=== PATIENT | female | born 1995 | race Caucasian/White ===

== ENCOUNTER 2018-08-09 09:55 | Emergency (ER) | payer BC, OTHER ==
[~2018-08-09] VITALS: Ht 154.9 cm; Wt 74.8 kg
--- OUTSIDE RECORDS SUMMARY | 2018-08-09 10:05 | XMS REPORT ---
Author Author JAGJIT HERCULES [facility] Address [address] [place] [address] Care Team Providers Care Curam Developer Name Role Phone JAGJIT HERCULES Unavailable PROBLEMS Type Condition ICD9-CM Code [id number] Code Onset Dates Condition Status SNOMED Code Problem Irritable bowel syndrome with diarrhea K58.0 Active 246161702 ALLERGIES Substance Reaction Event Type Date Status N.K.D.A. Unknown Non Drug Allergy Mar, Unknown SOCIAL HISTORY No smoking Hx information available PLAN OF CARE VITAL SIGNS MEDICATIONS Unknown Medications RESULTS No Results PROCEDURES No Known procedures IMMUNIZATIONS No Known Immunizations
--- OUTSIDE RECORDS SUMMARY | 2018-08-09 10:05 | XMS REPORT ---
Author Author FERNANDA NO [facility] Address [address] [place] [address] Care Team Providers Care Full Time Name Role Phone FERNANDA NO Unavailable PROBLEMS Type Condition ICD9-CM Code XDX88-CQ Code Onset Dates Condition Status SNOMED Code Problem Depression, unspecified depression type F32.9 Active 52677496 Problem Anxiety, generalized F41.1 Active 28132706 Problem Irritable bowel syndrome with diarrhea K58.0 Active 895596817 Assessment Depression, unspecified depression type F32.9 Apr, Active 63435000 ALLERGIES Unknown Allergies SOCIAL HISTORY No smoking Hx information available PLAN OF CARE VITAL SIGNS MEDICATIONS Unknown Medications RESULTS No Results PROCEDURES Procedure Date Ordered Related Diagnosis Body Site Psych diagnostic evaluation, new patient May 01, 2016 IMMUNIZATIONS No Known Immunizations
--- OUTSIDE RECORDS SUMMARY | 2018-08-09 10:05 | XMS REPORT ---
Author Author JAGJIT HERCULES [facility] Address [address] [place] [address] Care Team Providers Care Civil Engineering Draftsperson Name Role Phone JAGJIT HERCULES Unavailable PROBLEMS Type Condition ICD9-CM Code WYS87-ZN Code Onset Dates Condition Status SNOMED Code Problem Anxiety, generalized F41.1 Active 90397908 Problem Depression, unspecified depression type F32.9 Active 29949730 Problem Irritable bowel syndrome with diarrhea K58.0 Active [id number] ALLERGIES Substance Reaction Event Type Date Status N.K.D.A. Unknown Non Drug Allergy May, Unknown SOCIAL HISTORY No smoking Hx information available PLAN OF CARE Activity Details Follow Up 3 Months Reason:anxiety VITAL SIGNS Height 62 in 2016-06-13 Weight 196 lbs 2016-06-13 Temperature 98.6 degrees Fahrenheit 2016-06-13 Heart Rate 80 bpm 2016-06-13 Respiratory Rate 16 2016-06-13 BMI 35.84 kg/m2 2016-06-13 Blood pressure systolic 110 mmHg 2016-06-13 Blood pressure diastolic 80 mmHg 2016-06-13 MEDICATIONS Medication Instructions Dosage Frequency Start Date End Date Duration Status Prozac 20 mg Orally Once a day 1 capsule in the morning 24h Apr, Active Omeprazole 20 mg Orally twice a day 1 capsule 12h May, 30 day(s ) Active Citrucel - Orally Once a day as directed 24h Apr, Active RESULTS No Results PROCEDURES Procedure Date Ordered Related Diagnosis Body Site Office Visit, Est Pt., Level 3 Jun 13, 2016 IMMUNIZATIONS No Known Immunizations
[2018-08-09] MEDS ORDERED: ONDA4TAB11 PO (10:22)
[2018-08-09] MEDS ORDERED: DOXY1TAB3 PO (10:22)
--- NOTE | 2018-08-09 10:22 | ED GU-Female ---
General Chief Complaint: SKIN PILER Stated Complaint: VOMITTING-7 WEEKS Source: patient, other Exam Limitations: no limitations History of Present Illness Date Seen by Provider: Aug 09, 2018 Time Seen by Provider: 10:04 Initial Comments The patient presents to ER by private conveyance with chief complaint of nausea for the past 2-3 days. She's had occasional vomiting. No fevers or chills dysuria diarrhea. She has a history of Crohn's but has not acted up in years. She does not take any routine medicines except for vitamins. She is a at 6 weeks 2 days with an LMP of June 26, 2018. Her plan is to follow with Dr. Hernandez at [facility] and her first appointment is about 2 weeks away. She has no other significant medical history. She was using some Benadryl with modest relief of her symptoms up until yesterday. Allergies and Home Medications Allergies Coded Allergies: No Known Drug Allergies (Unverified , 08/09/18) Home Medications Doxylamine/Pyridoxine HCl 1 Each Tablet.dr, 1 EACH PO TID PRN for NAUSEA/ VOMITING-1ST LINE Prescribed by: ASHU MCCABE on 08/09/18 1022 Ondansetron 4 Mg Tab.rapdis, 4 MG PO Q6H PRN for NAUSEA/VOMITING-2ND LINE Prescribed by: ASHU MCCABE on 08/09/18 1022 Patient Home Medication List Home Medication List Reviewed: Yes Review of Systems Review of Systems Constitutional: No chills, No fever EENTM: No ear discharge Respiratory: No cough, No short of breath Cardiovascular: No chest pain, No edema Gastrointestinal: No abdominal pain; constipation; No diarrhea, No heartburn; nausea, vomiting Genitourinary: denies burning, denies dysuria : Yes LMP: Jun 26, 2018 Past Imgireu-Uuwjnn-Nqoumt Hx Patient Social History Alcohol Use: Rarely Uses Recreational Drug Use: No Smoking Status: Former Smoker Type Used: Cigarettes (0.5 ppd) Recent Foreign Travel: No Contact w/Someone Who Travel: No Physical Exam Vital Signs Vital Signs - First Documented 08/09/18 10:05 Temp 97.9 Pulse 107 Resp 18 B/P (MAP) 128/79 (95) Pulse Ox 98 Capillary Refill : Height, Weight, BMI Height: '" Weight: lbs. oz. kg; BMI Method: General Appearance: WD/WN, no apparent distress HEENT: PERRL/EOMI, pharynx normal (mildly dry oropharynx) Cardiovascular: normal peripheral pulses, regular rate, rhythm, no edema Respiratory: no respiratory distress, no accessory muscle use Gastrointestinal: normal bowel sounds, non tender, soft Neurologic/Psychiatric: alert, normal mood/affect, oriented x 3 Progress/Results/Core Measures Suspected Sepsis SIRS Temperature: Pulse: Respiratory Rate: Blood Pressure / Mean: Results/Orders Lab Results Laboratory Tests Test 08/09/18 10:25 Range/Units Urine Color YELLOW Urine Clarity CLEAR Urine pH 6.5 5-9 Urine Specific [place] 1.010 L 1.016-1.022 Urine Protein NEGATIVE NEGATIVE Urine Glucose (UA) NEGATIVE NEGATIVE Urine Ketones NEGATIVE NEGATIVE Urine Nitrite NEGATIVE NEGATIVE Urine Bilirubin NEGATIVE NEGATIVE Urine Urobilinogen NORMAL NORMAL MG/DL Urine Leukocyte Esterase 1+ H NEGATIVE Urine RBC (Auto) 1+ H NEGATIVE Urine RBC RARE /HPF Urine WBC RARE /HPF Urine Squamous Epithelial Cells 5-10 /HPF Urine Crystals NONE /LPF Urine Bacteria NEGATIVE /HPF Urine Casts NONE /LPF Urine Mucus SMALL H /LPF Urine Culture Indicated NO My Orders Orders - ASHU MCCABE Ua Culture If Indicated (08/09/18 10:15) Urine Bedside (08/09/18 10:15) Vital Signs/I&O 08/09/18 10:05 Temp 97.9 Pulse 107 Resp 18 B/P (MAP) 128/79 (95) Pulse Ox 98 Capillary Refill : Progress Note : Time: 10:19 Progress Note Chest mild tachycardia 107 but her nausea has resolved just with sitting here. Recommend some period on scene and doxylamine. Continue the prenatals which do not seem to have any association with her nausea. We'll get a urinalysis to rule out a bladder infection. She can follow-up with primary care. We'll provide Zofran as a backup if the other medicines are not working. Departure Impression Primary Impression: Nausea and vomiting during prior to 22 weeks gestation Additional Impression: Constipation Qualified Codes: K59.00 - Constipation, unspecified Disposition: HOME, SELF-CARE Condition: Stable Departure-Patient Inst. Decision time for Depature: 11:50 Referrals: NO,LOCAL PHYSICIAN (PCP/Family) Primary Care Physician Patient Instructions: Morning Sickness (DC) Add. Discharge Instructions: Drink plenty of fluids and take your vitamins on a full stomach. Use the vitamin B6 and doxylamine up to 3 times a day as needed for nausea or vomiting. If you cannot get her nausea vomiting under control then you can also use the Zofran 1 tablet every 8 hours as needed. Follow-up with your OB provider. 1 capful of MiraLAX, polyethylene glycol powder in 6-8 ounces of fluid of your choice daily until your constipation resolved. All discharge instructions reviewed with patient and/or family. Voiced understanding. Scripts Ondansetron (Ondansetron Odt) 4 Mg Tab.rapdis 4 MG PO Q6H PRN for NAUSEA/VOMITING-2ND LINE, #8 TAB 0 Refills Prov: ASHU MCCABE 08/09/18 Doxylamine/Pyridoxine HCl (Sergio Villafuerte 10-10 mg Tablet) 1 Each Tablet.dr 1 EACH PO TID PRN for NAUSEA/VOMITING-1ST LINE, #30 TAB 0 Refills Prov: ASHU MCCABE 08/09/18 ASHU MCCABE Aug 09, 2018 10:22
[2018-08-09 10:35] LABS: BILIRUBIN,URINE NEGATIVE (NEGATIVE); CLARITY,URINE CLEAR; COLOR,URINE YELLOW; GLUCOSE, URINE (UA) NEGATIVE (NEGATIVE); KETONES,URINE NEGATIVE (NEGATIVE); LEUKOCYTE ESTERASE ,URINE 1+ (NEGATIVE); NITRITE,URINE NEGATIVE (NEGATIVE); PH,URINE 6.5 (5-9); PROTEIN,URINE NEGATIVE (NEGATIVE); UROBILINOGEN,URINE NORMAL (NORMAL)
[2018-08-09 10:48] LABS: BACTERIA,URINE NEGATIVE /HPF; RBC,URINE RARE /HPF; WBC,URINE RARE /HPF
[2018-08-09] MEDS ORDERED: ONDANSETRON 4 MG (ZOFRAN) ORAL DISSOLVE TAB PO ONE (12:00)
[2018-08-09 12:01] VITALS: BP 128/79
== END 2018-08-09 12:02 | disposition home or self-care (01) ==
LOC: EDUNIT# 09:55 → ER 10:01
DX: O21.9 Vomiting of pregnancy, unspecified (principal); O99.611 Diseases of the digestive system complicating pregnancy, first trimester; K59.00 Constipation, unspecified; Z87.19 Personal history of other diseases of the digestive system; Z3A.01 Less than 8 weeks gestation of pregnancy; Z87.891 Personal history of nicotine dependence
CPT/HCPCS: 81000; 84703; 99283

== ENCOUNTER 2018-08-23 01:02 | Emergency (ER) | payer BC ==
[~2018-08-23] VITALS: Ht 154.9 cm; Wt 74.8 kg
[~2018-08-23 01:02] MED LIST: DOXY1TAB3 PO; ONDA4TAB11 PO
--- NOTE | 2018-08-23 01:25 | ED GI ---
General Chief Complaint: Abdominal/GI Problems Stated Complaint: THROWING UP Nursing Triage Note: N/V X3 WEEKS Sepsis Screen: No Definite Risk Source of Information: Patient, Other Exam Limitations: No Limitations History of Present Illness Date Seen by Provider: Aug 23, 2018 Time Seen by Provider: 01:10 Initial Comments Patient presents to ER by private conveyance with her significant other and chief complaint that she is consistently nauseated and her first trimester. She is a , with an LMP of June 26, 2018 putting her at 8 weeks and 2 days. She denies any fevers chills dysuria or abdominal pain, diarrhea, constipation, cough or shortness of breath. She said Zofran she was using about 3 times a day was working very well for her. Allergies and Home Medications Allergies Coded Allergies: No Known Drug Allergies (Unverified , 08/09/18) Home Medications Doxylamine/Pyridoxine HCl 1 Each Tablet.dr, 1 EACH PO TID PRN for NAUSEA/ VOMITING-1ST LINE Prescribed by: ASHU MCCABE on 08/09/18 1022 Ondansetron 4 Mg Tab.rapdis, 4 MG PO Q6H PRN for NAUSEA/VOMITING-2ND LINE Prescribed by: ASHU MCCABE on 08/09/18 1022 Patient Home Medication List Home Medication List Reviewed: Yes Review of Systems Review of Systems Constitutional: No chills, No fever EENTM: No Blurred Vision, No Eye Tearing Respiratory: Denies Cough, Denies Shortness of Air Cardiovascular: Denies Chest Pain, Denies Edema Gastrointestinal: Denies Abdomen Distended, Denies Abdominal Pain, Denies Constipated, Denies Diarrhea; Nausea; Denies Poor Fluid Intake; Vomiting Genitourinary: Denies Burning, Denies Discharge Musculoskeletal: No back pain, No joint pain Skin: No pruritus, No rash Past Hzrppsi-Kviekg-Lsesbo Hx Patient Social History Alcohol Use: Denies Use Recreational Drug Use: No Smoking Status: Current Everyday Smoker Type Used: Cigarettes 2nd Hand Smoke Exposure: Yes Recent Foreign Travel: No Contact w/Someone Who Travel: No Recent Infectious Disease Expo: No Recent Hopitalizations: No Seasonal Allergies Seasonal Allergies: No Past Medical History Surgeries: No Respiratory: No Cardiac: No Neurological: No : Yes Genitourinary: No Gastrointestinal: No Musculoskeletal: No Endocrine: No HEENT: No Cancer: No Psychosocial: No Integumentary: No Blood Disorders: No Physical Exam Vital Signs Vital Signs - First Documented 08/23/18 01:10 Temp 97.7 Pulse 95 Resp 18 B/P (MAP) 111/67 (82) Pulse Ox 100 O2 Delivery Room Air Capillary Refill : Less Than 3 Seconds Height/Weight/BMI Height: 5'1.00" Weight: 165lbs. oz. 74.406359bk; BMI Method:Estimated General Appearance: WD/WN, no apparent distress HEENT: TMs normal, pharynx normal Neck: non-tender, full range of motion, supple Respiratory: lungs clear, normal breath sounds, no respiratory distress, no accessory muscle use Cardiovascular: normal peripheral pulses, regular rate, rhythm, no edema Gastrointestinal: non tender, soft Extremities: non-tender, normal capillary refill Progress/Results/Core Measures Results/Orders My Orders Orders - ASHU MCCABE Ondansetron Oral Dissolve Tab (Zofran (08/23/18 01:30) Vital Signs/I&O 08/23/18 01:10 Temp 97.7 Pulse 95 Resp 18 B/P (MAP) 111/67 (82) Pulse Ox 100 O2 Delivery Room Air Blood Pressure Mean: 82 Departure Impression Primary Impression: Nausea and vomiting during prior to 22 weeks gestation Disposition: 01 HOME, SELF-CARE Condition: Stable Departure-Patient Inst. Decision time for Depature: 01:25 Referrals: NO,LOCAL PHYSICIAN (PCP/Family) Primary Care Physician Patient Instructions: Nausea and Vomiting of (DC) Add. Discharge Instructions: Take the Zofran every 6 hours as needed for nausea or vomiting. Use pyridoxine, vitamin B6 [id number] 2-3 times a day as necessary. All discharge instructions reviewed with patient and/or family. Voiced understanding. Scripts Ondansetron (Ondansetron Odt) 4 Mg Tab.rapdis 4 MG PO Q6H PRN for NAUSEA/VOMITING, #30 TAB 0 Refills Prov: ASHU MCCABE 08/23/18 ASHU MCCABE Aug 23, 2018 01:25
[2018-08-23] MEDS ORDERED: ONDA4TAB11 PO (01:28)
[2018-08-23] MEDS ORDERED: ONDANSETRON 4 MG (ZOFRAN) ORAL DISSOLVE TAB PO ONE (01:30)
[2018-08-23 01:33] VITALS: BP 111/67
== END 2018-08-23 01:32 | disposition home or self-care (01) ==
LOC: EDUNIT# 01:02 → ER 01:05
DX: O21.9 Vomiting of pregnancy, unspecified (principal); O99.331 Smoking (tobacco) complicating pregnancy, first trimester; F17.210 Nicotine dependence, cigarettes, uncomplicated; Z3A.01 Less than 8 weeks gestation of pregnancy
CPT/HCPCS: 99283

== ENCOUNTER 2020-11-14 15:20 | Emergency (ER) | payer BC, OTHER ==
[~2020-11-14] VITALS: Ht 160 cm; Wt 95.0 kg
[2020-11-14 16:15] LABS: BILIRUBIN,URINE NEGATIVE (NEGATIVE); CLARITY,URINE CLEAR; COLOR,URINE YELLOW; GLUCOSE, URINE (UA) NEGATIVE (NEGATIVE); KETONES,URINE NEGATIVE (NEGATIVE); LEUKOCYTE ESTERASE ,URINE NEGATIVE (NEGATIVE); NITRITE,URINE NEGATIVE (NEGATIVE); PROTEIN,URINE NEGATIVE (NEGATIVE)
[2020-11-14] MEDS ORDERED: NS IV 1000 ML 1,000 ML IV SCH (16:15)
[2020-11-14 16:17] LABS: BASOPHILS % (AUTO) 0 % (0-10); EOSINOPHILS # (AUTO) 0.1 10^3/uL (0.0-0.3); EOSINOPHILS % (AUTO) 1 % (0-10); HEMATOCRIT 41 % (35-52); LYMPHOCYTES # (AUTO) 1.2 10^3/uL (1.0-4.0); LYMPHOCYTES % (AUTO) 11 % (12-44); MEAN CORPUSCULAR HEMOGLOBIN 28 pg (25-34); MEAN CORPUSCULAR HGB CONC 32 g/dL (32-36); MEAN CORPUSCULAR VOLUME 89 fL (80-99); MEAN PLATELET VOLUME 12.4 fL (9.0-12.2); MONOCYTES # (AUTO) 0.7 10^3/uL (0.0-1.0); MONOCYTES % (AUTO) 7 % (0-12); NEUTROPHILS # (AUTO) 8.6 10^3/uL (1.8-7.8); NEUTROPHILS % (AUTO) 80 % (42-75); PLATELET COUNT 249 10^3/uL (130-400); WHITE BLOOD COUNT 10.8 10^3/uL (4.3-11.0)
--- NOTE | 2020-11-14 16:22 | ED Abdominal Pain ---
General Chief Complaint: Abdominal/GI Problems Stated Complaint: VOMITING/R SIDE PAIN Nursing Triage Note: ARRIVED VIA AMB TO ROOM 06 WITH COMPLAINTS OF RIGHT SIDED ABD PAIN AND VOMITING STARTING LAST NIGHT. Sepsis Screen: No Definite Risk History of Present Illness Date Seen by Provider: Nov 14, 2020 Time Seen by Provider: 16:00 Initial Comments Patient is a 24-year-old female who presents to the emergency department today with a chief complaint of right flank right upper quadrant and right lower quadrant abdominal pain. Patient states onset of pain last night. Patient states the pain is sharp in nature nothing really makes it any better or any worse. Patient states that she is took some Tylenol for the pain but it has not alleviated her symptoms. She complains of mild nausea. She denies any dysuria, urgency or frequency. She denies urine that is darker than normal. She denies any abnormal vaginal discharge. She is sexually active but is 6 months and her first sexual activity was 1 week ago. She is not on control. Patient has never had a kidney stone before. No fevers, chills. No productive cough. No shortness of breath. All other review of systems reviewed and negative except as stated above. Timing/Duration: 24 Hours Severity/Quality: Moderate, Sharp Location: Flank (Right flank) Radiation: RLQ Activities at Onset: None Modifying Factors: Improves With Analgesics (Patient states she took Tylenol without relief) Associated Symptoms: Back Pain (Right flank/back), Nausea/Vomiting (Mild nausea without vomiting) Allergies and Home Medications Allergies Coded Allergies: No Known Drug Allergies (Unverified , 08/09/18) Home Medications No Active Prescriptions or Reported Meds Patient Home Medication List Home Medication List Reviewed: Yes Review of Systems Review of Systems Constitutional: see HPI EENTM: No Symptoms Reported Respiratory: No Symptoms Reported Cardiovascular: No Symptoms Reported Gastrointestinal: Abdominal Pain Genitourinary: No Symptoms Reported Musculoskeletal: no symptoms reported Skin: no symptoms reported All Other Systems Reviewed Negative Unless Noted: Yes Past Wkslafy-Cqocdd-Lppktq Hx Patient Social History Alcohol Use: Denies Use Smoking Status: Current Everyday Smoker Type Used: Cigarettes 2nd Hand Smoke Exposure: Yes Recent Infectious Disease Expo: No Recent Hopitalizations: No Seasonal Allergies Seasonal Allergies: No Past Medical History Surgeries: No Respiratory: No Cardiac: No Neurological: No Genitourinary: No Gastrointestinal: No Musculoskeletal: No Endocrine: No HEENT: No Cancer: No Psychosocial: No Integumentary: No Blood Disorders: No Physical Exam Vital Signs Vital Signs - First Documented 11/14/20 15:20 Temp 36.2 Pulse 79 Resp 16 B/P (MAP) 138/90 (106) Pulse Ox 98 O2 Delivery Room Air Capillary Refill : Less Than 3 Seconds Height/Weight/BMI Height: 5'1.00" Weight: 165lbs. oz. 74.184657je; 37.00 BMI Method:Estimated General Appearance: WD/WN, mild distress Neck: normal inspection Respiratory: lungs clear, normal breath sounds, no respiratory distress, no accessory muscle use Cardiovascular: regular rate, rhythm Gastrointestinal: soft, tenderness (Mild tenderness in the right flank, right lower quadrant. The suprapubic region is also mildly tender.) Extremities: normal range of motion, non-tender, normal inspection, no pedal edema, no calf tenderness Back: normal inspection, no CVA tenderness Neurologic/Psychiatric: alert, normal mood/affect, oriented x 3 Skin: normal color, warm/dry Progress/Results/Core Measures Results/Orders Lab Results Laboratory Tests Test 11/14/20 15:30 11/14/20 16:07 Range/Units White Blood Count 10.8 4.3-11.0 10^3/uL Red Blood Count 4.58 3.80-5.11 10^6/uL Hemoglobin 13.0 11.5-16.0 g/dL Hematocrit 41 35-52 % Mean Corpuscular Volume 89 80-99 fL Mean Corpuscular Hemoglobin 28 25-34 pg Mean Corpuscular Hemoglobin Concent 32 32-36 g/dL Red Cell Distribution Width 13.1 10.0-14.5 % Platelet Count 249 130-400 10^3/uL Mean Platelet Volume 12.4 H 9.0-12.2 fL Immature Granulocyte % (Auto) 0 % Neutrophils (%) (Auto) 80 H 42-75 % Lymphocytes (%) (Auto) 11 L 12-44 % Monocytes (%) (Auto) 7 0-12 % Eosinophils (%) (Auto) 1 0-10 % Basophils (%) (Auto) 0 0-10 % Neutrophils # (Auto) 8.6 H 1.8-7.8 10^3/uL Lymphocytes # (Auto) 1.2 1.0-4.0 10^3/uL Monocytes # (Auto) 0.7 0.0-1.0 10^3/uL Eosinophils # (Auto) 0.1 0.0-0.3 10^3/uL Basophils # (Auto) 0.0 0.0-0.1 10^3/uL Immature Granulocyte # (Auto) 0.0 0.0-0.1 10^3/uL Sodium Level 140 135-145 MMOL/L Potassium Level 3.8 3.6-5.0 MMOL/L Chloride Level 108 H 98-107 MMOL/L Carbon Dioxide Level 20 L 21-32 MMOL/L Anion Gap 12 5-14 MMOL/L Blood Urea Nitrogen 16 7-18 MG/DL Creatinine 0.81 0.60-1.30 MG/DL Estimat Glomerular Filtration Rate > 60 BUN/Creatinine Ratio 20 Glucose Level 87 70-105 MG/DL Calcium Level 9.3 8.5-10.1 MG/DL Urine Color YELLOW Urine Clarity CLEAR Urine pH 6.0 5-9 Urine Specific [place] 1.020 1.016-1.022 Urine Protein NEGATIVE NEGATIVE Urine Glucose (UA) NEGATIVE NEGATIVE Urine Ketones NEGATIVE NEGATIVE Urine Nitrite NEGATIVE NEGATIVE Urine Bilirubin NEGATIVE NEGATIVE Urine Urobilinogen 0.2 < = 1.0 MG/DL Urine Leukocyte Esterase NEGATIVE NEGATIVE Urine RBC (Auto) NEGATIVE NEGATIVE Urine RBC 0-2 /HPF Urine WBC 0-2 /HPF Urine Squamous Epithelial Cells 5-10 /HPF Urine Crystals NONE /LPF Urine Bacteria TRACE /HPF Urine Casts NONE /LPF Urine Mucus NEGATIVE /LPF Urine Culture Indicated NO My Orders Orders - ROBBIE PAULINO MD Ed Iv/Invasive Line Start (11/14/20 15:54) Cbc With Automated Diff (11/14/20 15:54) Basic Metabolic Panel (11/14/20 15:54) Ua Culture If Indicated (11/14/20 15:54) Urine Bedside (11/14/20 15:54) Ns Iv 1000 Ml (Sodium Chloride 0.9%) (11/14/20 16:15) Ketorolac Injection (Toradol Injection) (11/14/20 16:30) Ondansetron Injection (Zofran Injectio (11/14/20 16:45) Ct Abd/Pelvis Wo(Kidney Stone) (11/14/20 16:57) Hydrocodone/Apap 7.5/325 Tab (Lortab 7. (11/14/20 18:00) Medications Given in ED Current Medications Medications Dose Ordered Sig/Sabi Route Start Time Stop Time Status Last Admin Dose Admin Acetaminophen/ Hydrocodone Bitart 1 ea ONCE ONCE PO 11/14/20 18:00 11/14/20 18:01 11/14/20 17:49 1 EA Ketorolac Tromethamine 30 mg ONCE ONCE IVP 11/14/20 16:30 11/14/20 16:31 DC 11/14/20 16:34 30 MG Ondansetron HCl 8 mg ONCE ONCE IVP 11/14/20 16:45 11/14/20 16:46 DC 11/14/20 16:37 8 MG Vital Signs/I&O 11/14/20 15:20 Temp 36.2 Pulse 79 Resp 16 B/P (MAP) 138/90 (106) Pulse Ox 98 O2 Delivery Room Air Blood Pressure Mean: 106 Progress Progress Note : Time: 17:46 Progress Note Reevaluated patient currently waiting on CT read. Patient states that her pain is improved but not gone. She currently rates at a "7". She states her nausea is completely alleviated. We will give the patient a p.o. hydrocodone at this time. Awaiting radiology reading on CAT scan. [address] scan of the abdomen and pelvis shows severe right hydronephrosis wit hout obvious ureteral stone. Will send the patient home on pain medicines and nausea medicines. She has no clinical or objective findings supportive of acute pyelonephritis. Her urine is clean her white count is normal her renal function is normal. Patient is given contact information for the urologist. She is also advised to follow-up with [facility]. She is given good return precautions. She verbalized understanding. All questions are sought and answered. Patient is stable for discharge. Diagnostic Imaging Diagonstic Imaging: CT Comments [facility] [place], [place] NAME: SIMA GONZALEZ [facility] REC#: [id number] PT STATUS: REG ER : 1995 PHYSICIAN: ROBBIE PAULINO MD ADMIT DATE: 11/14/20/ER Draft Date of Exam:11/14/20 CT ABD/PELVIS WO(KIDNEY STONE) INDICATION: Right flank pain with vomiting since last night. EXAMINATION: CT abdomen and pelvis without contrast, 11/14/2020. All CT scans use one or more of the following dose optimizing techniques: automated exposure control, MA and/or KvP adjustment based on patient size and exam type or iterative reconstruction. FINDINGS: There is severe right hydronephrosis. There is fat stranding along the proximal ureter but no obstructive stone is appreciated. Fat stranding is seen about the right kidney. There is no nephrolithiasis on either side. No ureteral stones on the left. No hydronephrosis on the left. The remaining abdominal viscera demonstrates no acute abnormality but limited due to the lack of IV contrast. The appendix is unremarkable. There is no ascites or free air. There is a small cystic lesion in the right adnexa, likely ovarian and measuring 2.2 cm in greatest dimension. Lung bases appear clear. There is no acute osseous abnormality IMPRESSION: 1. Severe right hydronephrosis with fat stranding about the right kidney and proximal right ureter. No obstructive lesion is appreciated. Findings could be due to a recently passed stone or due to pyelonephritis. Correlate with urinalysis. 2. Cystic lesion of right adnexa, likely a physiologic cystic structure in the right ovary. Dictated on workstation # [id number] Dict: 11/14/20 1741 Trans: 11/14/20 1750 [facility] [id number] Interpreted by: ANAND DAVIS MD Electronically signed by: Departure Impression Primary Impression: Abdominal pain Qualified Codes: R10.11 - Right upper quadrant pain Additional Impression: Hydronephrosis Qualified Codes: N13.30 - Unspecified hydronephrosis Disposition: 01 HOME, SELF-CARE Condition: Stable Departure-Patient Inst. Decision time for Depature: 17:59 Referrals: [facility],LOCAL PHYSICIAN (PCP) Primary Care Physician JES BILL MD Patient Instructions: Hydronephrosis in Adults Add. Discharge Instructions: Today you have a swollen right kidney. This may be due to a recently passed kidney stone. You will need to have your kidney function rechecked in a week or 2. I am sending you home today with pain medicine and nausea medicine to your pharmacy. Come back to the emergency room if you have any worsening pain with nausea vomiting, fever or any other emergent concerns. I am also giving you referral information for the urologist on-call. This is the type of doctor who takes care of kidneys and the bladder. Scripts Ondansetron (Ondansetron Odt) 4 Mg Tab.rapdis 4 MG PO Q8H PRN for nausea, #20 TAB Prov: ROBBIE PAULINO MD 11/14/20 Hydrocodone/Acetaminophen (Hydrocodone-Acetamin 5-325 mg) 1 Each Tablet 1 TAB PO Q6H PRN for PAIN-MODERATE (5-7), #20 TAB Prov: ROBBIE PAULINO MD 11/14/20 ROBBIE PAULINO MD Nov 14, 2020 16:21
[2020-11-14] MEDS ORDERED: KETOROLAC 30 MG/ML VIAL IVP ONE (16:30)
[2020-11-14 16:31] LABS: CHLORIDE 108 MMOL/L (98-107); POTASSIUM 3.8 MMOL/L (3.6-5.0); SODIUM 140 MMOL/L (135-145)
[2020-11-14 16:32] LABS: BACTERIA,URINE TRACE /HPF; RBC,URINE 0-2 /HPF; WBC,URINE 0-2 /HPF
[2020-11-14 16:32] LABS: CALCIUM 9.3 MG/DL (8.5-10.1)
[2020-11-14 16:33] LABS: GLUCOSE 87 MG/DL (70-105)
[2020-11-14 16:34] LABS: CARBON DIOXIDE 20 MMOL/L (21-32)
[2020-11-14 16:37] LABS: CREATININE SERUM 0.81 MG/DL (0.60-1.30); GFR ESTIMATED > 60
[2020-11-14 16:38] LABS: BUN/CREATININE RATIO 20
[2020-11-14] MEDS ORDERED: ONDANSETRON 4 MG/2 ML (SDV) Z0FRAN IVP ONE (16:45)
--- NOTE | 2020-11-14 17:52 | Diagnostic Imaging Report ---
INDICATION: Right flank pain with vomiting since last night. EXAMINATION: CT abdomen and pelvis without contrast, 11/14/2020. All CT scans use one or more of the following dose optimizing techniques: automated exposure control, MA and/or KvP adjustment based on patient size and exam type or iterative reconstruction. FINDINGS: There is severe right hydronephrosis. There is fat stranding along the proximal ureter but no obstructive stone is appreciated. Fat stranding is seen about the right kidney. There is no nephrolithiasis on either side. No ureteral stones on the left. No hydronephrosis on the left. The remaining abdominal viscera demonstrates no acute abnormality but limited due to the lack of IV contrast. The appendix is unremarkable. There is no ascites or free air. There is a small cystic lesion in the right adnexa, likely ovarian and measuring 2.2 cm in greatest dimension. Lung bases appear clear. There is no acute osseous abnormality IMPRESSION: 1. Severe right hydronephrosis with fat stranding about the right kidney and proximal right ureter. No obstructive lesion is appreciated. Findings could be due to a recently passed stone or due to pyelonephritis. Correlate with urinalysis. 2. Cystic lesion of right adnexa, likely a physiologic cystic structure in the right ovary. Dictated by: Dictated on workstation # [id number]
[2020-11-14] MEDS ORDERED: HYDROcodone/APAP 7.5 MG/325 MG (LORTAB, LORCET PLUS) TABLET PO ONE (18:00)
[2020-11-14] MEDS ORDERED: ACHD5005 PO (18:01)
[2020-11-14] MEDS ORDERED: ONDA4TAB11 PO (18:01)
[2020-11-14 18:10] VITALS: BP 131/84
== END 2020-11-14 18:10 | disposition home or self-care (01) ==
LOC: EDUNIT# 15:20 → ER 15:21
DX: N13.30 Unspecified hydronephrosis (principal); F17.210 Nicotine dependence, cigarettes, uncomplicated
CPT/HCPCS: 36415; 74176; 80048; 81000; 84703; 85025; 96361; 96374; 96375

== ENCOUNTER 2020-11-26 06:53 | Outpatient (CLI) | payer OTHER ==
[~2020-11-26] VITALS: Ht 157.5 cm; Wt 99.9 kg
[~2020-11-26 06:53] MED LIST changes: +ACHD5005 PO
[2020-11-29] MEDS ORDERED: IBUP-2473 PO (14:01)
[2020-11-30] MEDS ORDERED: NITR-65 PO (11:23)
== END 2020-11-29 15:18 | disposition home or self-care (01) ==
LOC: PREOP 06:53
PROVIDERS: ATTEND Urology
DX: Z01.818 Encounter for other preprocedural examination (principal)

== ENCOUNTER → 2020-11-30 | Day surgery (SDC) | payer OTHER ==
[~2020-11-30] VITALS: Ht 157.5 cm; Wt 99.9 kg
[2020-11-30] VITALS (9 sets, daily range): BP systolic 106–124; BP diastolic 65–80
[~2020-11-30] MED LIST changes: +IBUP-2473 PO; +LACTATED RINGERS 1,000 ML IV PRN; +LIDOCAINE PF 2% 5 ML (XYLOCAINE) VIAL ONE; +MEPERIDINE (DEMEROL) INJ 50 MG/ML IVP ONE; +MIDAZOLAM 2 MG/2 ML (VERSED) VIAL ONE; +NITR-65 PO; +ONDANSETRON 4 MG/2 ML (SDV) Z0FRAN IVP PRN; +ONDANSETRON 4 MG/2 ML (SDV) Z0FRAN ONE; +SEVOFLURANE (ULTANE) 15 ML INHAL SOLN ONE; +cefTRIAXone 1,000 MG in WATER (STERILE) FOR INJECTION 10 ML IV ONE; +fentaNYL INJ 100 MCG/2 ML AMP ONE; +morphine INJ 10 MG/ML 1ML (SYR OR VIAL) IVP ONE; +proPOfol 200 MG/20 ML (DIPRIVAN) VIAL IV ONE
--- NOTE | 2020-11-30 09:51 | Progress Note-Pre Operative ---
Pre-Operative Progress Note H&P Reviewed The H&P was reviewed, patient examined and no changes noted. Date Seen by Provider: Nov 30, 2020 Time Seen by Provider: 09:50 Date H&P Reviewed: Nov 30, 2020 Time H&P Reviewed: 09:50 Pre-Operative Diagnosis: RT UPJ OBSTRUCTION JES BILL MD Nov 30, 2020 09:51
--- NOTE | 2020-11-30 09:52 | Progress Note-Post Operative ---
Post-Operative Progess Note Surgeon (s)/Bench Worker Binding (s) Surgeon JES BILL MD Bench Worker Binding: NONE Pre-Operative Diagnosis RT UPJ OBSTRUCTION Post-Operative Diagnosis SAME Procedure & Operative Findings Date of Procedure 11/30/20 Procedure Performed/Findings CYSTOSCOPY AND RT RETROGRADE UROGRAM Anesthesia Type GENERAL Estimated Blood Loss Estimated blood loss (mL): NONE Specimens/Packing Specimens Removed NONE Packing: NONE JES BILL MD Nov 30, 2020 09:51
--- NOTE | 2020-11-30 09:53 | Discharge Inst-Urology ---
Discharge Inst-Urology Reconcile Patient Problems Problems Reviewed?: Yes Final Diagnosis RT UPJ OBSTRUCTION Patient Instructions/Follow Up Plan/Assessment/Instructions Please make appointment to been seen in office in [address] home Increase oral fluids for 48 hours and then as needed. Diet and Activity as tolerated. If questions or concerns contact your physician Or seek help at emergency department. JES BILL MD Nov 30, 2020 09:53
--- NOTE | 2020-11-30 11:59 | Anesthesia-General Post-Op ---
General Patient Condition Mental Status/LOC: Same as Preop Cardiovascular: Satisfactory Nausea/Vomiting: Absent Respiratory: Satisfactory Pain: Controlled Complications: Absent Post Op Complications Complications None Follow Up Care/Instructions Patient Instructions None needed. Anesthesia/Patient Condition Patient Condition Patient is doing well, no complaints, stable vital signs, no apparent adverse anesthesia problems. No complications reported per nursing. TZA HIGGINS CRNA Nov 30, 2020 11:59
--- NOTE | 2020-11-30 12:16 | Diagnostic Imaging Report ---
INDICATION: Fluoroscopy utilized for retrograde ureterogram. FINDINGS: Intraoperative films totaling 6 show contrast present. The calyces are not dilated. IMPRESSION: Fluoroscopy utilized in Surgery reported [address] Martin. Dictated by: Dictated on workstation # [id number]
--- NOTE | 2020-11-30 12:58 | Diagnostic Imaging Report ---
INDICATION: Urinary tract calculus. FINDINGS: Supine images of the abdomen are obtained. Overall bowel gas pattern is unremarkable. There is no evidence of pneumoperitoneum or pneumatosis. No pathologic abdominal calcification is identified. IMPRESSION: No acute abnormality or pathologic calcification seen. Dictated by: Dictated on workstation # [id number]
--- NOTE | 2020-11-30 14:55 | OPERATIVE REPORT ---
DATE OF SERVICE: 11/30/2020 PREOPERATIVE DIAGNOSIS: Right ureteropelvic junction obstruction. POSTOPERATIVE DIAGNOSIS: Right ureteropelvic junction obstruction. OPERATION PERFORMED: Cystoscopy with right retrograde ureterogram. SURGEON: Jasbir Bill MD ANESTHESIA: General. COMPLICATIONS: None. DESCRIPTION OF PROCEDURE: Under satisfactory general anesthesia, the patient in lithotomy position, genitalia were prepped and draped in the usual sterile fashion. Cystoscope was introduced under vision. The bladder was inspected with both lenses and was essentially normal except for a slightly sluggish efflux on the right side. Using the foroblique lens, I inserted a right ureteral catheter into the right ureteral orifice intramural portion and injected contrast to fill up the ureter and the pelvicalyceal system. The ureter was still all the way to the junction with the pelvis of the kidney that shows hydronephrosis and pyelocaliectasis. I removed the ureteral catheter. There was a fast and complete emptying of the ureter. There was still contrast coming from the renal pelvis into the ureter, which means that the obstruction was not complete. There was no abnormality in the attachment of the ureter to the pelvis of the kidney except for the obstruction. Bladder was evacuated and the cystoscope was removed. The patient tolerated the procedure and anesthesia well and was sent to recovery room in stable condition. PLAN: We will complete the workup with a diuretic renal nuclear scan and then we will send to for management. Job ID: [id number] DocumentID: [id number] Dictated Date: 11/30/2020 10:32:13 Ground Surveillance Systems Operator Date: 11/30/2020 14:54:25 Dictated By: JASBIR BILL MD
== END ==
LOC: SDC 09:07
PROVIDERS: ATTEND Urology
DX: N13.0 Hydronephrosis with ureteropelvic junction obstruction (principal); F17.210 Nicotine dependence, cigarettes, uncomplicated; Z79.891 Long term (current) use of opiate analgesic; Z79.899 Other long term (current) drug therapy
CPT/HCPCS: 74018; 76000; 84703; 87081

== ENCOUNTER 2021-03-07 17:08 | Emergency (ER) | payer OTHER ==
[~2021-03-07] VITALS: Ht 157.5 cm; Wt 97.5 kg
[~2021-03-07 17:08] MED LIST changes: -LACTATED RINGERS 1,000 ML IV PRN; -LIDOCAINE PF 2% 5 ML (XYLOCAINE) VIAL ONE; -MEPERIDINE (DEMEROL) INJ 50 MG/ML IVP ONE; -MIDAZOLAM 2 MG/2 ML (VERSED) VIAL ONE; -ONDANSETRON 4 MG/2 ML (SDV) Z0FRAN IVP PRN; -ONDANSETRON 4 MG/2 ML (SDV) Z0FRAN ONE; -SEVOFLURANE (ULTANE) 15 ML INHAL SOLN ONE; -cefTRIAXone 1,000 MG in WATER (STERILE) FOR INJECTION 10 ML IV ONE; -fentaNYL INJ 100 MCG/2 ML AMP ONE; -morphine INJ 10 MG/ML 1ML (SYR OR VIAL) IVP ONE; -proPOfol 200 MG/20 ML (DIPRIVAN) VIAL IV ONE
--- OUTSIDE RECORDS SUMMARY | 2021-03-07 17:12 | XMS REPORT | Encounter Summary ---
Author Author [facility] Organization [facility] Address Unknown Phone Unavailable Care Team Providers Care Patient Transport Officer Name Role Phone No Pcp, Na PCP Unavailable Encounter Details Care Team Description Date Type Department 02/09/2021 Travel Social History Date Tobacco Use Types Packs/Day Years Used Current Every Day Smoker Smokeless Tobacco: Never Used Comments Alcohol Use Standard Drinks/Week Yes 4 (1 standard drink = 0.6 o z pure alcohol) Sex Assigned at Date Recorded Female 02/21/2021 9:52 AM CDT Date Recorded COVID-19 Exposure Response 02/09/2021 12:18 PM CDT In the last month, have you been in contact with No / Unsure someone who was confirmed or suspected to have Coronavirus / COVID-19? documented as of this encounter Functional Status Date of Assessment Functional Status Response 02/09/2021 Does the patient have a hearing impairment: Yes 02/09/2021 Does the patient have a visual impairment: No 02/09/2021 Does the patient have impaired ambulation: No 02/09/2021 Does the patient have an activity of daily living No (ADL) impairment: 02/09/2021 Does the patient have an instrumental activity of No daily living (IADL) impairment: Date of Assessment Cognitive Status Response 02/09/2021 Does the patient have a cognitive impairment: No documented as of this encounter Plan of Treatment Care Team Description Date Type Specialty Rayray Mclaughlin MD [id number] [place] [address] [phone] Obstruction of right ureteropelvic junct ion (UPJ) 03/10/2021 Hospital Encounter Rayray Mclaughlin MD [address] [facility] [address] [place] [address] [phone] robotic-assisted laparoscopic right dism embered pyeloplasty, right ureteroscopy, ureteral stent placement 03/10/2021 Surgery documented as of this encounter Visit Diagnoses Not on filedocumented in this encounter Additional Health Concerns Assessment Noted Time A fall risk assessment has been completed for the pat ient 02/09/2021 12:45 PM CDT documented as of this encounter
--- OUTSIDE RECORDS SUMMARY | 2021-03-07 17:12 | XMS REPORT | Encounter Summary ---
Author Author [facility] Organization [facility] Address Unknown Phone Unavailable Care Team Providers Care Press Loader Name Role Phone No Pcp, Na PCP Unavailable Reason for Visit * Reason Comments Ureteropelvic junction obstruction * Consult, Test & Treat (Routine) Referred By Contact Referred To Contact Status Reason Specialty Diagnoses / Procedures Jasbir Martin MD [facility] [place] [address] Rayray Mclaughlin MD [address] [address] Authorized Urology Diagnoses UPJ obstruction, acquired new patient consultation Encounter Details Care Team Description Date Type Department Rayray Mclaughlin MD [address] [address] Ureteropelvic junction (UPJ) obstruction (Primary Dx) 02/09/2021 Office Visit Urology: Nitesh Amanda s, [facility] [address] [place] [address]. [address], [address] [place] [address] Social History Date Tobacco Use Types Packs/Day [...] / COVID-19? documented as of this encounter Last Filed Vital Signs Reading Time Taken Comments Vital Sign 118/85 02/09/2021 12:39 PM CDT Blood Pressure 80 02/09/2021 12:39 PM CDT Pulse 37.1 C (98.8 F) 02/09/2021 12:39 PM CDT Temperature - - Respiratory Rate - - Oxygen Saturation - - Inhaled Oxygen Concentration 96.3 kg (212 lb 6.4 oz) 02/09/2021 12:39 PM CDT Weight 157.5 cm (5' 2") 02/09/2021 12:39 PM CDT Height 38.85 02/09/2021 12:39 PM CDT Body Mass Index documented in this encounter Functional Status Date of Assessment [...] impairment: No documented as of this encounter Patient Instructions * Patient Instructions* Leena Steinberg RN - 02/09/2021 1:00 PM CDT Images from the original note were not included. -Labs today, [address] [place] [address] (CBC/BMP) -Please complete a urine culture the week prior to your procedure. -Complete a COVID PCR swab 48-72 hours prior to surgery. This can be completed l ocally and we recommend bringing a copy of the result with you on the day of alfonso mildred. Urology: [facility] Pre-Operative Instructions Surgical Procedure: Right robotic pyeloplasty Date of Surgery: 03/10/21 Arrival Time at the Admission Office (Main Lobby): TBD To ensure that your surgery can proceed without delay, you will be contacted by a phone triage nurse from the Preoperative Assessment Clinic (PAC) to complete t his process. Please review the information given to you by your surgeon. You will be called by the surgery staff with your day of surgery arrival time be tween 2:30 - 4:30 PM the business day prior to surgery. If you have not heard fr om them after 4:30 PM, please call to confirm your arrival time. Pre-Operative Assessment and Instructions: Once you speak to the nurse or are seen in the Pre-Operative Assessment Clinic, you will be given medication instructions. However, if surgery is within 2 weeks , please read and follow the medication instructions below to prepare for surger y before you speak with the phone triage nurse: DO NOT STOP your blood thinner until you have contacted your prescribing provide r or have been specifically instructed to do so. Starting Now: Contact your provider who prescribes any of the following to develop a plan for surgery: o Blood thinners such as aspirin, Aggrenox, Brilinta, Effient, Eliquis, enoxapar in (Lovenox), clopidogrel (Plavix), cilostazol, pentoxifylline (Trental), Pradax a, Savaysa, ticlopidine, Xarelto, and warfarin (Coumadin) o Immunosuppresants such as methotrexate, azathioprine, sulfasalazine, everolimu s, sirolimus, Humira, Remicade, Enbrel, Simponi, Orencia, Cimzia, Actemra, and X eljanz o Chemotherapy 14 days prior to surgery: Stop most vitamins, herbals, and supplements including (but not limited to): o Alpha lipoic acid, black cohosh, CoQ10, echinacea, eye vitamins, fish oil, fla xseed oil, garlic, gingko biloba, ginseng, glucosamine/chondroitin, kava, Lovaza , lutein, lysine, multivitamin, red yeast rice, IVON-e, saw palmetto, [place] s wort, turmeric, valerian root, Vascepa, Vitamin A, Vitamin B complex, Vitamin C, Vitamin E - You DO NOT need to stop: iron, magnesium, potassium 7 days prior to surgery: Stop anti-inflammatory medications such as ibuprofen (Advil, Motrin), naprox en (Aleve), Larissa-Bryan, Excedrin, Midol, celecoxib (Celebrex), diclofenac (Vol kentrell), diflunisal, etodolac, flurbiprofen, indomethacin, ketoprofen, ketorolac, meloxicam, nabumetone, and piroxicam Do not drink alcohol within 24 hours of surgery. Please do not eat or drink anything after midnight. No gum, mints, hard candy, snacks, coffee, etc or chewing tobacco allowed after midnight before surgery. Y ou may brush your teeth but be sure to rinse and spit. Please shower with an over the counter antibacterial soap the evening before or the morning of surgery. If your surgery is scheduled as an outpatient, you must arrange to have someone drive you home and have someone with you 24 hours after anesthesia. If you stay in the hospital after surgery, you will be evaluated daily by your c are team for appropriateness for discharge. You will be responsible for coordina ting your transportation and home support for your recovery. If you do not know the needs for post-surgical support, please address this prior to surgery with y our surgeon or your surgeon's nurse so you will have a safe transition home. If you have any questions, please contact your provider's office at [phone] . For emergencies during evenings, nights, weekends, and holidays, contact [facility] filter tank operator and request they contact the on-call Urology Resident at [phone]. Pyeloplasty The ureters are the 2 tubes that carry urine from the kidneys to the bladder. If urine cant flow througha ureter, it builds up in the kidney. This is called ureteropelvic junction (UPJ) obstruction. This may cause symptoms such as pain, fever, and vomiting. It can also cause serious health problems such as infection or kidney damage. People with UPJ obstruction are often born with it. But it may not show up until later in life. Urine flow through the ureter can be blocked by a narrowing (stricture) of the ureter ang. A blood vessel that presses on the ureter can also cause it. Pyeloplasty is surgery to unblock the ureter and let urine flow again. Getting ready for surgery Prepare for the surgery as you have been told. In addition: Tell your healthcare provider about all medicines you take. This includes pre scription and hepj-oar-hbvgkaf medicines, vitamins, herbs, and supplements. You may need to stop taking some or all of them before surgery, as instructed by you r provider. Don't eat or drink during the 8 hours before your surgery. This includes wate r, gum, and mints. You may be given a special liquid or medicine to take the day before the surg raissa. This is to make sure your colon is empty for the surgery. Two types of surgery The surgery may be done through several small incisions (laparoscopy). Or it may be done through one larger incision (open surgery). Laparoscopy can't be used in all cases. In some cases, your surgeon may start the procedure with laparoscopy but for safety reasons must change to open surgery. You and your surgeon will talk about your options. Laparoscopy. The surgeon makes several small incisions in the belly (abdomen) . The scope is put through one of the small incisions. The scope sends pictures from inside the abdomen to a video screen. Surgical tools are put through the ot her incisions. The surgeon may use a method called robotic laparoscopy. The [employer] system gives a 3-D view inside the body. It also assists the surgeons moore d movements. Open surgery. One larger incision is made in the side over the ribs. The surg gerard sees and works through this incision. Part of a rib may need to be removed s o the surgeon can reach the kidney. The day of surgery The surgery takes about 3 to 5 hours. Afterward, you will stay in the hospital f or 1 to 3 nights. Before the surgery begins: An IV (intravenous) line is put into a vein in your arm or hand. This line de livers fluids and medicine (such as antibiotics). You may get medicine to prevent blood clots. To keep you free of pain during the surgery, youre given general anesthesi a. This medicine puts you into a deep sleep-like state through the surgery. A tu be may be put into your throat to help you breathe. A thin tube (catheter) is placed into your bladder through the urethra. This drains urine during the surgery and for a time afterward. During the surgery: If a part of the ureter is narrowed, that part is cut out. The lower cut end is then sewn to the kidney. Or, the ureter and kidney are both cut. Part of the kidney is then used to make the ureter wider. If a blood vessel is pressing on t he ureter, it is moved away. A long, flexible tube (stent) is put into the ureter. It reaches from the kid emilie into the bladder. It's kept in place for 4 to 6 weeks after surgery to help hold the ureter open while it heals. When the surgery is done, all tools are removed. The incisions are closed wit h stitches, alpesh, surgical glue, or strips of surgical tape. One or more tube s may be placed near the incisions. These drain fluid from the incision for a sh ort time after surgery. Recovering in the hospital After the surgery, you will be taken to a recovery room. You'll be watched as yo u wake up from the anesthesia. You may feel sleepy and nauseated. If a breathing tube was used, your throat may be sore at first. When you are ready, you will be taken to your hospital room. While in the hospital: You will be given medicine to manage pain. Let your healthcare providers know if your pain is not controlled. Youll first receive IV fluids. In a day or so, you will start on a liquid diet. You will then slowly return to a normal diet. As soon as youre able, you will get up and walk. Youll be taught coughing and breathing methods to help keep your lungs fred ar and prevent pneumonia. The catheter in your urethra and any drains will likely be taken out before y ou leave the hospital. If not, you will be shown how to care for them at home. Recovering at home After your hospital stay, you will be released to an adult family member or frie nd. Have someone stay with you for the next few days, to help care for you. Jose Maria very time varies for each person. Your healthcare provider will tell you when yo u can return to your normal routine. Until then, follow the instructions you hav e been given. Make sure to: Take all medicines as directed. Follow your healthcare providers guidelines for showering. Don't swim, bat he, use a hot tub, or do other activities that will cover the incision with wate r until your provider says its OK. Don't lift anything heavy or do strenuous activities. Don't drive until you are no longer taking prescription pain medicine and you r provider says its OK. Don't strain during a bowel movement. If needed, take stool softeners as dire cted by your healthcare provider. The stent in your ureter will cause the urge to pass urine more often. You may a lso have some burning and blood in your urine. This is normal and will go away o nce the stent is removed during a follow-up visit. When to call your healthcare provider Call your healthcare provider right away if you have any of the following: Fever of 100.4 F( 38 C) orhigher, or as directed by your provider Symptoms of infection at an incision site such as increased redness or swelli ng, warmth, worsening pain, or foul-smelling drainage Bleeding or a large amount of drainage from an incision Blood clots in your urine Leg pain or swelling Inability to urinate Vomiting that doesnt go away Call 911 Call 911 right away if you have: Chest pain Trouble breathing Follow-up care You will have follow-up visits with your healthcare provider. If sutures or stap les need to be removed, this is done 1 to 2 weeks after surgery. The stent in th e ureter will be removed in 4 to 6 weeks. About 3 months after surgery, you may have an imaging test. This checks that the ureter is open and the kidney is work ing normally. Risks and possible complications All procedures have some risk. Possible risks of pyeloplasty include: Infection Bleeding (you may need a blood transfusion) Urine leakage at the surgical site Scarring of the ureter Damage to nearby organs Need for further surgery Kidney damage Risks of anesthesia (the anesthesiologist or nurse hospice office coordinator will discuss t hese with you) [employer] last reviewed this educational content on 04/20/201919990502-2093 [employer]. All rights reserved. This information is not intended as a substitute for professional medical care. Always follow your healthcare professional's instructions. 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 CT A/P images are not available to review today; will obtain these to determine the sourav ology of her obstruction (such as a crossing vessel). -If the pathology of her ureteral obstruction is intrinsic, she was counseled th at it could be managed with endopyelotomy or balloon dilation, which carries up to a 50% recurrence rate. If a crossing vessel is identified, then a dismembere d pyeloplasty would be required. -After discussing both procedures, patient "just wants to get this fixed" and is interested in the dismembered pyeloplasty. -We will tentatively schedule for robotic assisted laparoscopic right dismembere d pyeloplasty, right ureteroscopy, insertion of ureteral stent on 03/10/2021. -BMP, CBC, urine culture prior documented in this encounter Progress Notes * Rayray Mclaughlin MD - 02/09/2021 1:00 PM CDT Images from the original note were not included. Urology CC: No chief complaint on file. HPI: Anahi Bagley is a 25 y.o. female, otherwise healthy, referred by Dr. Jasbir Martin for evaluation of right UPJ obstruction. Patient developed intermittent right flank discomfort in 05/2020. This focal di scomfort occurred on a monthly basis and increased in severity with hydration. She presented to her local ER on on 11/14/2020 with right flank pain, which was m uch more severe than she had ever experienced. CT A/P demonstrated severe right hydronephrosis with no obstructing lesions or stones. Dr. Martin (urology) perf ormed cystoscopy with right retrograde ureteropyelogram was performed on 12/01/19. This demonstrated severe hydronephrosis, but contrast did drain from the col lecting system, ruling out complete obstruction. Patient has never required a u reteral stent or nephrostomy tube for this condition. She is currently asymptom at. Patient is a current smoker with no family history of malignancy. She has no prior abdominal or pelvic surgeries. PMH: Medical History: Diagnosis Date Depression Inflammatory bowel disease Unspecified deficiency anemia PSH: No past surgical history on file. Medications: No current outpatient medications on file. Allergies: Patient has no known allergies. Social History: Social History Substance and Sexual Activity Alcohol Use Yes Alcohol/week: 4.0 standard drinks Types: 4 Standard drinks or equivalent per week Social History Tobacco Use Smoking Status Current Every Day Smoker Smokeless Tobacco Never Used Social History Substance and Sexual Activity Drug Use Never Family History: Family History Problem Relation Age of Onset Cancer Maternal Grandmother Cancer-Hematologic Maternal Grandmother Physical Exam: Vitals: 02/09/21 1239 BP: 118/85 Pulse: 80 Temp: 37.1 C (98.8 F) Body mass index is 38.85 kg/m. Constitutional: appears well-developed, no acute distress HEENT: normocephalic, conjuctiva clear, normal EOM Pulmonary: normal respiratory effort with symmetric chest expansion Cardiovascular: palpable radial pulse, no cyanosis GI: abdomen soft, non-tender, non-distended, no palpable masses Skin: warm and dry; no jaundice for erythema Musculoskeletal: no edema, no gross deformity, normal range of motion Neurological: awake, alert, no focal deficits, normal gait Psychiatric: normal affect : No CVA tenderness Diagnostics: Imaging: Retrograde ureteropyelogram (11/30/2020): Assessment/Plan: 25 y.o. female otherwise healthy, referred by Dr. Jasbir Martin for evaluation of right UPJ obstruction -which was diagnosed during an episode of severe right fla nk pain by CT A/P on 11/14/2020. Outside right retrograde ureteropyelogram on (images pasted above) demonstrates this hydronephrosis. 1. 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 CT A/P images are not available to review today; will obtain these to determine the sourav ology of her obstruction (such as a crossing vessel). -If the pathology of her ureteral obstruction is intrinsic, she was counseled th at it could be managed with endopyelotomy or balloon dilation, which carries up to a 50% recurrence rate. If a crossing vessel is identified, then a dismembere d pyeloplasty would be required. -After discussing both procedures, patient "just wants to get this fixed" and is interested in the dismembered pyeloplasty. -We will tentatively schedule for robotic assisted laparoscopic right dismembere d pyeloplasty, right ureteroscopy, insertion of ureteral stent on 03/10/2021. -BMP, CBC, urine culture prior Rayray Mclaughlin MD documented in this encounter Plan of Treatment Care Team Description Date Type Specialty Rayray Mclaughlin MD [address] [id number] Obstruction of right ureteropelvic junct ion (UPJ) 03/10/2021 Hospital Encounter Rayray Mclaughlin MD [address] [id number] robotic-assisted laparoscopic right dism embered pyeloplasty, right ureteroscopy, ureteral stent placement 03/10/2021 Surgery Order Schedule Name Type Priority Associated Diag noses Expected: 02/28/2021, Expires: CULTURE-URINE Microbiology Routine Ureteropelvic j unction W/SENSITIVITY (UPJ) obstruction Expected: 03/07/2021 (Approximate), Expi res: 02/09/2022 COVID-19 (SARS-COV-2) PCR Microbiology Routine Uret eropelvic junction (UPJ) obstruction Expected: 02/09/2021 (Approximate), Expi res: 03/11/2021 CBC Lab Routine Ureteropelvic j unction (UPJ) obstruction Expected: 02/09/2021 (Approximate), Expi res: 03/11/2021 BASIC METABOLIC PANEL Lab Routine Ureterop elvic junction (UPJ) obstruction documented as of this encounter Visit Diagnoses Diagnosis Ureteropelvic junction (UPJ) obstructio n - Primary Obstruction of right ureteropelvic junc tion (UPJ) documented in this encounter Additional Health Concerns Assessment Noted Time A fall risk assessment has been completed for the pat ient 02/09/2021 12:45 PM CDT documented as of this encounter
--- OUTSIDE RECORDS SUMMARY | 2021-03-07 17:12 | XMS REPORT | Encounter Summary ---
Author Author [facility] Organization [facility] Address Unknown Phone Unavailable Care Team Providers Care Political Researcher Name Role Phone No Pcp, Na PCP Unavailable Encounter Details Care Team Description Date Type Department Rayray Mclaughlin MD [address] [address] Obstruction of right ureteropelvic junct ion (UPJ) (Primary Dx) 02/09/2021 Prep for Case Urology: Nitesh waldrop, [facility] [address] [facility]. [address], [address] [place] [address] Social History Date Tobacco Use [...] Date Type Specialty Rayray Mclaughlin MD [address] [address] [phone] Obstruction of right ureteropelvic junct ion (UPJ) 03/10/2021 Hospital Encounter Rayray Mclaughlin MD [address] [address] [phone] robotic-assisted laparoscopic right dism embered pyeloplasty, right ureteroscopy, ureteral stent placement 03/10/2021 Surgery documented as of this encounter Visit Diagnoses Diagnosis Obstruction of right ureteropelvic junc tion (UPJ) - Primary Obstruction of right ureteropelvic junc tion (UPJ) documented in this encounter Orders First Ordered Date Nursing Count Last Ordered Date COVID-19 TESTING NOT REQUIRED 1 02/10/20 21 First Ordered Date Case Request Count Last Ordered Date CASE REQUEST 1 02/09/2021 documented in this encounter Additional Health Concerns Assessment Noted Time A fall risk assessment has been completed for the pat ient 02/09/2021 12:45 PM CDT documented as of this encounter
--- NOTE | 2021-03-07 17:34 | ED Back Pain ---
General Chief Complaint: Back Problems Stated Complaint: BACK PAIN Nursing Triage Note: PT AMB TO FT 3 W REPORTS OF VOMITING AND RIGHT FLANK PAIN X3 HOURS. PT IS SCHEDULED FOR SURGERY FOR THIS ON SUNDAY AT , CAME TO ED D/T INCREASING PAIN. PT A&OX4. 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 This is consistent with previous episodes. Tried tylenol with no help. Also has some n/v nonbloody/nonbilious. No fever associated with it. Allergies and Home Medications Allergies Coded Allergies: No Known Drug Allergies (Unverified , 08/09/18) Patient Home Medication List Home Medication List Reviewed: Yes Hydrocodone/Acetaminophen (Hydrocodone-Acetamin 5-325 mg) 1 Each Tablet, 1 TAB PO Q6H PRN for PAIN-MODERATE (5-7) Prescribed by: ROBBIE PAULINO on 11/14/20 180 Ibuprofen (Ibuprofen) 200 Mg Tablet, 800 MG PO DAILY PRN, (Reported) Entered as Reported by: RACHNA CANALES on 11/29/20 1401 Nitrofurantoin Monohyd/M-Cryst (Macrobid 100 mg Capsule) 100 Mg Capsule, 1 TAB PO BID WITH MEALS Prescribed by: BARBARA MENDEZ on 11/30/20 1123 Ondansetron (Ondansetron Odt) 4 Mg Tab.rapdis, 4 MG PO Q8H PRN for nausea Prescribed by: ROBBIE PAULINO on 11/14/20 1801 Review of Systems Constitutional: No chills, No fever EENTM: see HPI Respiratory: no symptoms reported Cardiovascular: no symptoms reported Gastrointestinal: No abdominal pain, No diarrhea, No nausea, No vomiting Genitourinary: No dysuria Musculoskeletal: no symptoms reported Skin: no symptoms reported Psychiatric/Neurological: No Symptoms Reported All Other Systems Reviewed Negative Unless Noted: Yes Past Ayvmeey-Sxsffm-Lrnebk Hx Patient Social History Tobacco Use?: Yes Tobacco type used: Cigarettes Smoking Status: Current Everyday Smoker Use of E-Cig and/or Vaping dev: No Substance use?: No Alcohol Use?: No Seasonal Allergies Seasonal Allergies: No Past Medical History Surgery/Hospitalization HX: WISDOM TEETH Surgeries: Yes (WISDOM TEETH) Respiratory: No Cardiac: No Neurological: No Last Menstrual Period: Mar 07, 2021 Genitourinary: Yes Kidney Stones Gastrointestinal: No Musculoskeletal: No Endocrine: No HEENT: No Cancer: No Psychosocial: No Integumentary: No Blood Disorders: No Physical Exam Vital Signs Vital Signs - First Documented 03/07/21 17:18 Temp 36.0 Pulse 75 Resp 20 B/P (MAP) 121/85 (97) Pulse Ox 98 O2 Delivery Room Air Capillary Refill : Less Than 3 Seconds Height, Weight, BMI Height: 5'1.00" Weight: 165lbs. oz. 74.969159wo; 39.00 BMI Method:Estimated General Appearance: No Apparent Distress, WD/WN HEENT: PERRL/EOMI, Normal ENT Inspection, Pharynx Normal Neck: Full Range of Motion, Normal Inspection, Non Tender, Supple Cardiovascular: Regular Rate, Rhythm, No Edema, Normal Peripheral Pulses Respiratory: Chest Non Tender, Lungs Clear, Normal Breath Sounds, No Accessory Muscle Use, No Respiratory Distress Gastrointestinal: Normal Bowel Sounds, Non Tender, Soft; No Distended, No Guarding Back: Normal Inspection, No CVA Tenderness, No Vertebral Tenderness Extremity: Normal Capillary Refill, Normal Inspection, Normal Range of Motion, Non Tender, No Calf Tenderness, No Pedal Edema Neurologic/Psychiatric: Alert, No Motor/Sensory Deficits, Normal Mood/Affect Skin: Normal Color, Warm/Dry Lymphatic: No Adenopathy Progress/Results/Core Measures Results/Orders My Orders Orders - CHAD NUNEZ MD Urine Bedside (03/07/21 17:38) Ua Culture If Indicated (03/07/21 17:38) Zofran Sl (03/07/21 17:38) Oxycodone Immediate Rel Tablet (Oxyir Ta (03/07/21 17:45) Vital Signs/I&O 03/07/21 17:18 Temp 36.0 Pulse 75 Resp 20 B/P (MAP) 121/85 (97) Pulse Ox 98 O2 Delivery Room Air Blood Pressure Mean: 97 Progress Progress Note : Progress Note 25-year-old female with well-documented history of 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 She has pain associated with this that is very consistent with previous episodes. No fever or other signs of infection. We will get a screening urinalysis to further evaluate for this. LMP was 2 days ago. We will give her pain and nausea medications to get her through the next few days so that she can make it up to . She is otherwise well-appearing and I believe she is stable for discharge with outpatient follow-up. She was sent home with strict return precautions. Departure Impression Primary Impression: Hydronephrosis Qualified Codes: Q62.11 - Congenital occlusion of ureteropelvic junction Disposition: HOME, SELF-CARE Condition: Stable Departure-Patient Inst. Decision time for Depature: 18:00 Referrals: NO,LOCAL PHYSICIAN (PCP/Family) Primary Care Physician Patient Instructions: Hydronephrosis in Adults Add. Discharge Instructions: You are seen in the emergency department for worsening pain and nausea in the setting of your known hydronephrosis. We have sent pain and nausea medications to your pharmacy. You have any fever or worsening symptoms then please come back to the ER, otherwise please follow-up with [facility] in 3 days Scripts Ondansetron (Ondansetron Odt) 4 Mg Tab.rapdis 4 MG PO Q6H PRN for NAUSEA/VOMITING for 5 Days, #20 TAB 0 Refills Prov: CHAD NUNEZ MD 03/07/21 Oxycodone HCl (Oxycodone HCl) 5 Mg Tablet 5 MG PO Q6H for Pain for 3 Days, #12 TAB Prov: CHAD NUNEZ MD 03/07/21 Work/School Note: Work Release Form Date Seen in the Emergency Department: Mar 07, 2021 Return to Work: Mar 09, 2021 Restrictions: No Restrictions CHAD NUNEZ MD Mar 07, 2021 17:34
[2021-03-07] MEDS ORDERED: ONDANSETRON 4 MG (ZOFRAN) ORAL DISSOLVE TAB SL STA (17:38)
[2021-03-07] MEDS ORDERED: ONDA4TAB11 PO (17:43)
[2021-03-07] MEDS ORDERED: OXYC5TAB PO (17:43)
[2021-03-07 17:53] LABS: BILIRUBIN,URINE NEGATIVE (NEGATIVE); CLARITY,URINE CLOUDY; COLOR,URINE YELLOW; GLUCOSE, URINE (UA) NEGATIVE (NEGATIVE); KETONES,URINE NEGATIVE (NEGATIVE); LEUKOCYTE ESTERASE ,URINE NEGATIVE (NEGATIVE); NITRITE,URINE NEGATIVE (NEGATIVE); PROTEIN,URINE 1+ (NEGATIVE)
[2021-03-07 17:59] LABS: BACTERIA,URINE TRACE /HPF; SQUAMOUS EPITHELIAL CELL,UR 0-2 /HPF
[2021-03-07 18:12] VITALS: BP 127/80
== END 2021-03-07 18:12 | disposition home or self-care (01) ==
LOC: EDUNIT# 17:08 → ER 17:09
DX: N13.0 Hydronephrosis with ureteropelvic junction obstruction (principal); F17.210 Nicotine dependence, cigarettes, uncomplicated
CPT/HCPCS: 81000; 84703; 99283